=== PATIENT | male | born 1950 | race Caucasian/White ===

== ENCOUNTER → 2019-11-10 | Outpatient (CLI) | payer OTHER ==
[~2019-11-10] MED LIST: CYCLOBENZAPRINE10 MG PO; Ecotrin325 MG PO; NORCO 5-325 TA1 EACH PO; TYLENOL 8 HOUR650 MG PO; ZESTRIL2.5 MG PO
== END | disposition home or self-care (01) ==
LOC: RAD 09:39
DX: J98.11 Atelectasis (principal); J98.4 Other disorders of lung; R60.9 Edema, unspecified

== ENCOUNTER → 2019-11-23 | Outpatient (CLI) | payer OTHER | END | disposition home or self-care (01) | LOC: US 10:37 | DX: R60.0 Localized edema (principal); R60.9 Edema, unspecified; M54.6 Pain in thoracic spine ==

== ENCOUNTER → 2020-01-30 | Outpatient (CLI) | payer OTHER | END | disposition home or self-care (01) | LOC: CARD 08:09 | PROVIDERS: ATTEND Internal Medicine Cardiovascular Disease | DX: I51.7 Cardiomegaly (principal); I10 Essential (primary) hypertension; R60.0 Localized edema ==

== ENCOUNTER → 2020-01-31 | Outpatient (CLI) | payer OTHER | END | disposition home or self-care (01) | LOC: CT 12:15 | PROVIDERS: ATTEND Physician Assistant | DX: K43.9 Ventral hernia without obstruction or gangrene (principal); K42.9 Umbilical hernia without obstruction or gangrene ==

== ENCOUNTER 2022-10-26 23:21 | Emergency (ER) | payer OTHER ==
[~2022-10-26] VITALS: Ht 182.8 cm; Wt 143.3 kg
[2022-10-26 23:33] VITALS: BP 140/63
[2022-10-26] MEDS ORDERED: METOPROLOL SUCC25 M2 PO (23:37)
[2022-10-26] MEDS ORDERED: NEURONTIN300 MG PO (23:37)
[2022-10-26] MEDS ORDERED: LOSARTAN-HCTZ1 EACH PO (23:38)
[2022-10-26] MEDS ORDERED: OFEV150 MG PO (23:38)
[2022-10-26] MEDS ORDERED: IBU800 M1 PO (23:38)
[2022-10-26] MEDS ORDERED: ATORVASTATIN CA40 M1 PO (23:38)
[2022-10-27 00:14] LABS: BASO # 0.1 10*3/uL (0.0-0.1); BASO % 0.7 % (0.0-1.0); EOS # 0.3 10*3/uL (0.0-0.4); EOS % 3.5 % (1.0-4.0); HEMATOCRIT 38.5 % (42.0-52.0); LYMPH # 2.3 10*3/uL (1.3-4.4); LYMPH % 31.2 % (27.0-41.0); MEAN CELL VOLUME 98.2 fl (80.0-94.0); MEAN CORPUSCULAR HGB 34.7 pg (27.0-31.0); MEAN CORPUSCULAR HGB CONC 35.3 g/dl (33.0-37.0); MEAN PLATELET VOLUME 9.9 fl (9.6-12.3); MONO # 0.9 10*3/uL (0.1-1.0); MONO % 12.1 % (3.0-9.0); NEUT # 3.9 10*3/uL (2.3-7.9); NEUT % 52.4 % (47.0-73.0); PLATELET COUNT AUTOMATED 207 10*3/uL (130-400); RED BLOOD COUNT 3.92 10*6/uL (4.50-5.90); RED CELL DISTRI WIDTH 13.1 % (0-14.5); WHITE BLOOD COUNT 7.4 10*3/uL (4.8-10.8)
[2022-10-27 00:34] LABS: ALKALINE PHOSPHATASE 75 U/L (46-116); BUN 15 mg/dl (9-23); CHLORIDE 105 mmol/L (98-107); POTASSIUM 3.7 mmol/L (3.4-5.1); SGPT/ALT 18 U/L (10-49); TOTAL PROTEIN 6.8 gm/dL (6.0-8.0)
[2022-10-27] MEDS ORDERED: MIRALAX POWDER17 G1 PO (00:51)
== END 2022-10-27 01:08 | disposition home or self-care (01) ==
LOC: ED 23:21
PROVIDERS: Internal Medicine
DX: K64.8 Other hemorrhoids (principal); D64.9 Anemia, unspecified; I10 Essential (primary) hypertension; Z90.49 Acquired absence of other specified parts of digestive tract; Z98.890 Other specified postprocedural states

== ENCOUNTER → 2023-03-25 | Day surgery (SDC) | payer OTHER ==
[~2023-03-25] VITALS: Ht 182.8 cm; Wt 144.7 kg
[~2023-03-25] MED LIST changes: +ATORVASTATIN CA40 M1 PO; +CEFDINIR300 MG PO; +IBU800 M1 PO; +LOSARTAN-HCTZ1 EACH PO; +METOPROLOL SUCC25 M2 PO; +MIRALAX POWDER17 G1 PO; +NEURONTIN300 MG PO; +OCUFLOX 0.3% 5 M5 ML OPH; +OFEV150 MG PO
[2023-03-25 07:30] VITALS: BP 125/77
[2023-03-25 08:47] VITALS: BP 109/67
[2023-03-25 09:02] VITALS: BP 115/72
[2023-03-25 09:17] VITALS: BP 121/69
== END | disposition home or self-care (01) ==
LOC: SDC 03-20 12:30
PROVIDERS: ATTEND Specialist
DX: H65.491 Other chronic nonsuppurative otitis media, right ear (principal); I10 Essential (primary) hypertension; E78.00 Pure hypercholesterolemia, unspecified; E66.9 Obesity, unspecified; G62.9 Polyneuropathy, unspecified; Z79.82 Long term (current) use of aspirin; Z79.899 Other long term (current) drug therapy; Z98.890 Other specified postprocedural states

== ENCOUNTER → 2023-05-11 | Outpatient (CLI) | payer OTHER | END | disposition home or self-care (01) | LOC: CARD 01:13 | PROVIDERS: ATTEND Physician Assistant | DX: I34.81 Nonrheumatic mitral (valve) annulus calcification (principal); J84.10 Pulmonary fibrosis, unspecified; E83.110 Hereditary hemochromatosis; I10 Essential (primary) hypertension; R60.9 Edema, unspecified ==

== ENCOUNTER → 2023-09-03 | Outpatient (CLI) | payer OTHER ==
[~2023-09-03] MED LIST changes: +IOHEXOL 350 MG/ML 100 ML VIAL IV ONE; +SODIUM CHLORIDE 0.9% 100 ML BAG IV ONE
== END | disposition home or self-care (01) ==
LOC: CT 08-31 11:00
PROVIDERS: ATTEND Internal Medicine Pulmonary Disease
DX: J84.10 Pulmonary fibrosis, unspecified (principal)

== ENCOUNTER 2023-10-09 23:30 | Emergency (ER) | payer OTHER ==
[~2023-10-09] VITALS: Ht 182.8 cm; Wt 136.1 kg
[~2023-10-09 23:30] MED LIST changes: -IOHEXOL 350 MG/ML 100 ML VIAL IV ONE; -SODIUM CHLORIDE 0.9% 100 ML BAG IV ONE
[2023-10-09 23:46] LABS: BASO # 0.1 10*3/uL (0.0-0.1); BASO % 0.7 % (0.0-1.0); EOS # 0.2 10*3/uL (0.0-0.4); EOS % 2.4 % (1.0-4.0); HEMATOCRIT 46.7 % (42.0-52.0); LYMPH # 1.8 10*3/uL (1.3-4.4); LYMPH % 21.8 % (27.0-41.0); MEAN CELL VOLUME 94.7 fl (80.0-94.0); MEAN CORPUSCULAR HGB 31.4 pg (27.0-31.0); MEAN CORPUSCULAR HGB CONC 33.2 g/dl (33.0-37.0); MEAN PLATELET VOLUME 10.1 fl (9.6-12.3); MONO % 11.5 % (3.0-9.0); NEUT # 5.3 10*3/uL (2.3-7.9); NEUT % 63.4 % (47.0-73.0); PLATELET COUNT AUTOMATED 195 10*3/uL (130-400); RED BLOOD COUNT 4.93 10*6/uL (4.50-5.90); RED CELL DISTRI WIDTH 13.9 % (0-14.5); WHITE BLOOD COUNT 8.4 10*3/uL (4.8-10.8)
[2023-10-10 00:08] LABS: ALKALINE PHOSPHATASE 83 U/L (46-116); BUN 16 mg/dl (9-23); CHLORIDE 106 mmol/L (98-107); SGPT/ALT 14 U/L (5-49); TOTAL PROTEIN 7.1 gm/dL (6.0-8.0)
[2023-10-10 09:30] VITALS: BP 120/60
== END 2023-10-10 09:34 | disposition short-term general hospital (02) ==
LOC: ED 23:30
PROVIDERS: Internal Medicine
DX: I44.2 Atrioventricular block, complete (principal); I10 Essential (primary) hypertension; E78.00 Pure hypercholesterolemia, unspecified; Z90.49 Acquired absence of other specified parts of digestive tract; Z98.890 Other specified postprocedural states